=== PATIENT | female | born 1995 | race African-American/Black ===

== ENCOUNTER 2016-06-01 18:44 | Emergency (ER) | payer MEDICAID ==
[2016-06-01 19:46] LABS: BLOOD, URINE NEG (NEG); CALCIUM OXALATE CRYSTALS,URINE MANY /hpf; COMMENT (UR) CULT NOT INDICATED; CULTURE IF INDICATED CULT NOT INDICATED; GLUCOSE,URINE 300 mg/dL (NEG); KETONE, URINE 10 mg/dL (NEG); MUCUS URINE FEW /lpf (OCC); NITRITE,URINE NEG (NEG); SQUAMOUS EPITHELIAL CELL URINE 3 /hpf (0-5); URINE COLOR YELLOW (YELLW/STRAW)
[2016-06-01] MEDS ORDERED: METR250T15 PO (20:55)
--- NOTE | 2016-06-01 20:55 | PD ---
HPI Chief Complaint Vaginal discharge abdominal pain possibly leaking fluid Date Seen: Jun 01, 2016 Travel History International Travel<30 Days: No Contact w/Intl Traveler<30Days: No Known Affected Area: No History of Present Illness HPI Patient is a 20-year-old black female at 30 weeks gestation presents planning of abdominal pain and vaginal discharge and possibly leaking fluid. She denies bleeding or contractions. Baby is active heart rate tracing reactive. Para: 0 : 2 : 1 History Obstetric History Obstetric History 1 AB Social History Alcohol Use: No Tobacco Use: No Substance Abuse: No Allergies-Medications (Allergen,Severity, Reaction): Coded Allergies: No Known Allergies (Unverified , 02/10/16) Home Meds No Active Prescriptions or Reported Meds Physical Exam Narrative GENERAL: Well-nourished, well-developed patient. SKIN: Warm and dry. HEAD: Normocephalic and atraumatic. EYES: No scleral icterus. No injection or drainage. ENT: No nasal drainage noted. Mucous membranes pink. Airway patent. NECK: Supple, trachea midline. No JVD. CARDIOVASCULAR: Regular rate and rhythm without murmurs, gallops, or rubs. RESPIRATORY: Breath sounds equal bilaterally. No accessory muscle use. BREASTS: Bilateral exam showed no masses , no retractions, no nipple discharge. ABDOMEN/GI: Abdomen soft, non-tender, bowel sounds present, no rebound, no guarding Gravid to [-30] weeks size Fundal Height: [-29 cm] GENITOURINARY: External Genitalia: intact and normal in appearance right discharge in the vagina and wet prep done positive for bacterial vaginosis BUS glands: [-] Cervix: [-Closed] Dilatation: [-] Effacement: [-] Station: [-] Presentation: [-] Membranes: [intact ]amnisure neg Uterine Contractions: [none-] FHT's: Category: [1-] Baseline: [144-] Reactive: [-yes] Variability: [-mod] Decels: [none-] EXTREMITIES: No cyanosis or edema. BACK: Nontender without obvious deformity. No CVA tenderness. NEUROLOGICAL: Awake and alert. Motor and sensory grossly within normal limits. Five out of 5 muscle strength in all muscle groups. Normal speech. Data Data Orders Vital Signs (Adult) .ON ADMISSION (06/01/16 19:12) ^ Labor Status (06/01/16 19:12) Urinalysis - C+S If Indicated (06/01/16 19:12) ^ Hydration (06/01/16 19:12) Wet Prep Profile (06/01/16 19:23) Labs Laboratory Tests Test 06/01/16 06/01/16 19:00 19:25 Urine Color YELLOW Urine Turbidity HAZY Urine pH 6.0 Urine Specific [place] 1.032 Urine Protein 30 Urine Glucose (UA) 300 Urine Ketones 10 Urine Occult Blood NEG Urine Nitrite NEG Urine Bilirubin NEG Urine Urobilinogen LESS THAN 2.0 Urine Leukocyte Esterase NEG Urine RBC 1 Urine WBC 2 Urine Squamous Epithelial 3 Cells Urine Calcium Oxalate Crystals MANY Urine Mucus FEW Microscopic Urinalysis Comment CULT NOT INDICATED Clue Cells (Wet Prep) PRESENT Vaginal Trichomonas (Wet Prep) NONE SEEN Vaginal Yeast (Wet Prep) NONE SEEN MDM Interpretation(s) Since her black female at 30 weeks with vaginal discharge possibly leaking fluid ,amnisure is negative, her urinalysis was negative when it was high for a sugar earlier fingerstick blood sugar was 83, wet prep shows positive clue cells and bacterial vaginosis no yeast or trichomoniasis Plan Plan to begin the patient on Flagyl 250 3 times a day and have her follow up with her OB provider Diagnosis Diagnosis: Primary Impression: Bacterial vaginosis Additional Impression: Abdominal pain during intrauterine Disposition: 01 DISCHARGE HOME Condition: Stable Scripts Metronidazole 250 Mg Hff133 Mg PO TID #21 TAB Ref 0 Prov:Kit Boggs II, MD 06/01/16 Patient Instructions: General Instructions, Labor (ED), Abdominal Pain in (ED) Additional Instructions: RETURN FOR CONTRACTIONS, LOSS OF FLUID (WATER BREAKING), VAGINAL BLEEDING, OR DECREASED MOVEMENT. DRINK 8-10 LARGE GLASSES OF WATER EVERY DAY. OBTAIN A COPY OF YOUR RECORDS AND LABS. KEEP YOUR SCHEDULED APPOINTMENT WITH YOUR PROVIDER. Departure Forms: Tests/Procedures Kit Boggs II, MD Jun 01, 2016 20:55
== END 2016-06-01 21:00 | disposition home or self-care (01) ==
LOC: HOBED 18:44
DX: O23.593 Infection of other part of genital tract in pregnancy, third trimester (principal); O26.893 Other specified pregnancy related conditions, third trimester; R10.9 Unspecified abdominal pain; Z3A.30 30 weeks gestation of pregnancy
CPT/HCPCS: 81001; 82948; 84112; 87210; 99284

== ENCOUNTER 2016-10-16 12:00 | Emergency (ER) | payer MEDICAID, OTHER ==
[~2016-10-16 12:00] MED LIST: METR250T15 PO
[2016-10-16 12:02] VITALS: BP 150/98; PULSE 82; RESP 16; TEMP 98.2; O2SAT 98
--- NOTE | 2016-10-16 12:08 | PD ---
Physical Exam Date Seen by Provider: October 16, 2016 Time Seen by Provider: 12:05 Narrative 21/y/o female with ongoing vaginal bleeding for 2 days. Patient usually has period at the first of month. Currently bleeding very heavy with clots. States a Pad An Hour. No significant abd. cramping. V/S Stable Awaiting Bed Placement. Data Data Last Documented VS Vital Signs Date Time Temp Pulse Resp B/P Pulse Ox O2 Delivery O2 Flow Rate FiO2 10/16/16 12:02 98.2 82 16 150/98 98 MDM Medical Record Reviewed: Yes Supervised Visit with CLARISA: Yes Condition: Stable Iftikhar Varela October 16, 2016 12:08
[2016-10-16 12:43] LABS: AUTOMATED NEUTROPHIL # 1.5 TH/MM3 (1.8-7.7); BASOPHIL % 0.6 % (0.0-2.0); EOSINOPHIL # 0.2 TH/MM3 (0-0.4); EOSINOPHIL % 4.3 % (0.0-4.0); HEMATOCRIT 37.4 % (35.0-46.0); HEMO FLAGS DIFF FINAL; MEAN CELL VOLUME 86.2 FL (80.0-100.0); MEAN CORPUSCULAR HEMOGLOBIN 28.1 PG (27.0-34.0); MEAN CORPUSCULAR HGB CONC 32.6 % (32.0-36.0); NEUT % 38.1 % (16.0-70.0); PLATELET COUNT 291 TH/MM3 (150-450); RED BLOOD COUNT 4.34 MIL/MM3 (4.00-5.30); RED CELL DISTRIBUTION WIDTH 14.1 % (11.6-17.2)
[2016-10-16 12:51] LABS: BACTERIA, URINE FEW /hpf; BLOOD, URINE LARGE (NEG); COMMENT (UR) CULTURE INDICATED; CULTURE IF INDICATED CULTURE INDICATED; GLUCOSE,URINE NEG (NEG); KETONE, URINE TRACE mg/dL (NEG); MUCUS URINE MANY /lpf (OCC); NITRITE,URINE NEG (NEG); PH, URINE 5.5 (5.0-8.5); SQUAMOUS EPITHELIAL CELL URINE 2 /hpf (0-5)
[2016-10-16 12:52] LABS: URINE COLOR RED (YELLW/STRAW)
[2016-10-16 13:05] LABS: ANION GAP 8 MEQ/L (5-15); AST (GOT) 74 U/L (16-38); BICARBONATE 26.2 MEQ/L (21.0-32.0); BLOOD UREA NITROGEN 4 MG/DL (7-18); CHLORIDE 104 MEQ/L (98-107); GLOMERULAR FILTRATION RATE 103 ML/MIN (>89); POTASSIUM 3.6 MEQ/L (3.5-5.1); SODIUM (NA) 138 MEQ/L (136-145)
[2016-10-16 13:08] LABS: ALKALINE PHOSPHATASE 71 U/L (45-117); ALT (GPT) 96 U/L (9-42); TOTAL BILIRUBIN ADULT 0.9 MG/DL (0.2-1.0)
--- NOTE | 2016-10-16 13:26 | PD ---
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 The patient states that she started bleeding yesterday and has been passing clots. States that she has been changing a pad every hour. Patient states that her last menstrual period was 08/26/16 and that she is a little late for her menstrual cycle. She did not take a test at home. States that she has had some mild lower abdominal cramping typical for menstrual cramps. States that her periods typically light and that this is abnormal for her to have heavy bleeding. She denies any fever, chills, nausea, vomiting, diarrhea, lightheadedness, dizziness, chest pain, shortness of breath. She did have a vaginal delivery 3 months ago, has had 3 menstrual cycles since her delivery. No other complaints. [facility] Past Medical History Diminished Hearing: No ?: Unknown : 1 Para: 0 Miscarriage: 1 Dilation and Curettage (D&C): Yes Social History Alcohol Use: No Tobacco Use: No Substance Use: No Allergies-Medications (Allergen,Severity, Reaction): Coded Allergies: No Known Allergies (Unverified , 10/16/16) Reported Meds & Prescriptions Reported Meds & Active Scripts Active Metronidazole 250 Mg Tab 250 Mg PO TID Review of Systems Except as stated in HPI: all other systems reviewed are Neg Physical Exam Narrative GENERAL: Well-nourished and well-developed pleasant female patient in no acute distress who is nontoxic appearing. SKIN: Warm and dry. HEAD: Normocephalic and atraumatic. EYES: No injection, drainage, or hyphema noted. PERRLA. EOMI. ENT: No nasal drainage noted. Oropharynx is clear. NECK: Supple and the trachea is midline. CARDIOVASCULAR: Regular rate and rhythm. RESPIRATORY: Breath sounds are equal bilaterally with no accessory muscle use, wheezing, rhonchi, or crackles. GASTROINTESTINAL: Abdomen is soft, non-tender, and nondistended. GENITOURINARY: Normal external genitalia without lesions or erythema. Vaginal vault with moderate amount of blood. Cervical os was closed without drainage. No cervical motion tenderness. Uterus nontender and nonenlarged. Bilateral adnexa nontender without masses. Performed in the presence of Eliz RIOS. MUSCULOSKELETAL: No obvious deformities, swelling, cyanosis, or ecchymosis is present throughout the upper and lower extremities. Patient has full range of motion without any signs of neurovascular compromise. NEUROLOGICAL: Awake, alert, and oriented. Normal speech and gait. Cranial nerves are grossly intact. Data Data Last Documented VS Vital Signs Date Time Temp Pulse Resp B/P Pulse Ox O2 Delivery O2 Flow Rate FiO2 10/16/16 12:02 98.2 82 16 150/98 98 Orders Complete Blood Count With Diff (10/16/16 12:12) Basic Metabolic Panel (Bmp) (10/16/16 12:12) Comprehensive Metabolic Panel (10/16/16 12:12) Urinalysis - C+S If Indicated (10/16/16 12:12) Ua Includes Microscopic (10/16/16 12:12) Ed Urine Pregnancytest Poc (10/16/16 12:12) Urine Culture (10/16/16 12:25) Labs Laboratory Tests Test 10/16/16 12:25 White Blood Count 4.0 TH/MM3 Red Blood Count 4.34 MIL/MM3 Hemoglobin 12.2 GM/DL Hematocrit 37.4 % Mean Corpuscular Volume 86.2 FL Mean Corpuscular Hemoglobin 28.1 PG Mean Corpuscular Hemoglobin 32.6 % Concent Red Cell Distribution Width 14.1 % Platelet Count 291 TH/MM3 Mean Platelet Volume 7.7 FL Neutrophils (%) (Auto) 38.1 % Lymphocytes (%) (Auto) 49.0 % Monocytes (%) (Auto) 8.0 % Eosinophils (%) (Auto) 4.3 % Basophils (%) (Auto) 0.6 % Neutrophils # (Auto) 1.5 TH/MM3 Lymphocytes # (Auto) 2.0 TH/MM3 Monocytes # (Auto) 0.3 TH/MM3 Eosinophils # (Auto) 0.2 TH/MM3 Basophils # (Auto) 0.0 TH/MM3 CBC Comment DIFF FINAL Differential Comment Urine Color RED Urine Turbidity HAZY Urine pH 5.5 Urine Specific [place] 1.023 Urine Protein 30 mg/dL Urine Glucose (UA) NEG mg/dL Urine Ketones TRACE mg/dL Urine Occult Blood LARGE Urine Nitrite NEG Urine Bilirubin NEG Urine Urobilinogen LESS THAN 2.0 MG/DL Urine Leukocyte Esterase SMALL Urine RBC /hpf Urine WBC 34 /hpf Urine Squamous Epithelial 2 /hpf Cells Urine Bacteria FEW /hpf Urine Mucus MANY /lpf Microscopic Urinalysis Comment CULTURE INDICATED Sodium Level 138 MEQ/L Potassium Level 3.6 MEQ/L Chloride Level 104 MEQ/L Carbon Dioxide Level 26.2 MEQ/L Anion Gap 8 MEQ/L Blood Urea Nitrogen 4 MG/DL Creatinine 0.85 MG/DL Estimat Glomerular Filtration 103 ML/MIN Rate Random Glucose 90 MG/DL Calcium Level 9.4 MG/DL Total Bilirubin 0.9 MG/DL Aspartate Amino Transf 74 U/L (AST/SGOT) Alanine Aminotransferase 96 U/L (ALT/SGPT) Alkaline Phosphatase 71 U/L Total Protein 8.1 GM/DL Albumin 4.1 GM/DL [facility] Medical Decision Making Medical Screen Exam Complete: Yes Emergency Medical Condition: Yes Differential Diagnosis Dysmenorrhea versus heavy menstruation versus cervical cancer Narrative Course 21-year-old female presents to the emergency department for 2 day history of heavy vaginal bleeding. Patient is afebrile, vital signs are stable. Abdominal examination is benign. ED urine test is negative. CBC is unremarkable. CMP shows slightly elevated LFTs but is otherwise unremarkable. Urinalysis shows hematuria, slight proteinuria and a few white blood cells. This is asymptomatic bacteruria and therefore we'll follow cultures rather than treat with antibiotics at this time. Pelvic examination shows vaginal bleeding but is otherwise unremarkable. Patient is stable for discharge to home. Discussed signs and symptoms of anemia and when to return to the emergency department. Advised to follow-up as an outpatient with her grinder outside diameter or PCP. Patient verbalizes understanding and agreement with treatment plan. I discussed the case with my attending physician Dr. Wynne who is aware of the patients history, physical examination findings, and treatment plan. Diagnosis Primary Impression: Dysmenorrhea Referrals: Porcelain Enamel Repairer Patient Instructions: Dysmenorrhea (ED), General Instructions Additional Instructions: Follow-up with your Primary Care Physician or Porcelain Enamel Repairer. Return to the ED for any acute worsening of symptoms such as lightheadedness, syncope, chest pain, shortness of breath. Med/Other Pt SpecificInfo: No Change to Meds Disposition: 01 DISCHARGE HOME Condition: Stable Latesha Ortega October 16, 2016 13:26
[2016-10-16 14:15] VITALS: BP 147/84
== END 2016-10-16 14:16 | disposition home or self-care (01) ==
LOC: NEPD 12:00
DX: N94.6 Dysmenorrhea, unspecified (principal); R82.71 Bacteriuria
CPT/HCPCS: 80053; 81001; 84703; 85025; 87086; 99284

== ENCOUNTER 2016-11-02 17:24 | Emergency (ER) | payer MEDICAID, OTHER ==
[~2016-11-02] VITALS: Ht 154.9 cm; Wt 65.0 kg
[2016-11-02 17:25] VITALS: BP 132/78; PULSE 88; RESP 20; TEMP 98.9; O2SAT 97
--- NOTE | 2016-11-02 17:35 | PD ---
Physical Exam Date Seen by Provider: Nov 02, 2016 Time Seen by Provider: 17:34 Data Data Last Documented VS Vital Signs Date Time Temp Pulse Resp B/P Pulse Ox O2 Delivery O2 Flow Rate FiO2 11/02/16 17:25 98.9 88 20 132/78 97 Room Air MDM Supervised Visit with CLARISA: No Narrative Course 21 YO F with complaint of dyspareunia, odor during intercourse x 2 days. LMP "end of last month" Vitals reviewed. Awaiting bed placement. Daya Flowers Nov 02, 2016 17:35
== END 2016-11-02 21:03 | disposition left against medical advice (07) ==
LOC: NED 17:24
DX: N94.10 Unspecified dyspareunia (principal); Z53.20 Procedure and treatment not carried out because of patient's decision for unspecified reasons
CPT/HCPCS: 99281

== ENCOUNTER 2016-11-07 19:36 | Emergency (ER) | payer MEDICAID ==
[~2016-11-07] VITALS: Ht 154.9 cm; Wt 66.5 kg
[2016-11-07 19:37] VITALS: BP 131/78; PULSE 91; RESP 16; TEMP 98.6; O2SAT 99
[2016-11-07 21:46] LABS: BACTERIA, URINE RARE /hpf; BLOOD, URINE NEG (NEG); GLUCOSE,URINE NEG (NEG); KETONE, URINE TRACE mg/dL (NEG); MUCUS URINE FEW /lpf (OCC); NITRITE,URINE NEG (NEG); SQUAMOUS EPITHELIAL CELL URINE 3 /hpf (0-5); URINE COLOR YELLOW (YELLW/STRAW)
[2016-11-07 21:47] LABS: COMMENT (UR) CULT NOT INDICATED; CULTURE IF INDICATED CULT NOT INDICATED
== END 2016-11-07 21:44 | disposition left against medical advice (07) ==
LOC: NED 19:36
DX: Z53.21 Procedure and treatment not carried out due to patient leaving prior to being seen by health care provider (principal)
CPT/HCPCS: 81001; 84703; 99281

== ENCOUNTER 2016-11-19 18:02 | Emergency (ER) | payer MEDICAID ==
[2016-11-19 18:03] VITALS: BP 138/77; PULSE 66; RESP 14; TEMP 98.1; O2SAT 99
[2016-11-19] MEDS ORDERED: METR-1 PO (20:35)
--- NOTE | 2016-11-19 20:36 | PD ---
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 She is a history of BV. She states she sexually active one male partner only. He has no symptoms. She denies any urinary symptoms. No other complaints. History Past Medical History Medical History: Denies Significant Hx Tetanus Vaccination: Unknown Influenza Vaccination: No LMP: 10/14/16 : 2 Para: 1 Dilation and Curettage (D&C): Yes Past Surgical History Surgical History: No Previous Surgery Social History Alcohol Use: No Tobacco Use: No Allergies-Medications (Allergen,Severity, Reaction): Coded Allergies: No Known Allergies (Unverified , 11/19/16) Reported Meds & Prescriptions Reported Meds & Active Scripts Active No Active Prescriptions or Reported Medications Review of Systems Except as stated in HPI: all other systems reviewed are Neg Physical Exam Narrative GENERAL: Well-appearing 21-year-old woman, no acute distress. SKIN: Focused skin assessment warm/dry. NECK: Trachea midline. No JVD. CARDIOVASCULAR: Regular rate and rhythm. No murmur appreciated. RESPIRATORY: No accessory muscle use. Clear to auscultation. Breath sounds equal bilaterally. GASTROINTESTINAL: Abdomen soft, non-tender, nondistended. Hepatic and splenic margins not palpable. MUSCULOSKELETAL: No obvious deformities. REFRIGERATOR CRATER: Normal emotional abdominal genitalia. Scant vaginal discharge. Data Data Last Documented VS Vital Signs Date Time Temp Pulse Resp B/P Pulse Ox O2 Delivery O2 Flow Rate FiO2 11/19/16 18:03 98.1 66 14 138/77 99 Orders Gc And Chlamydia Pcr (11/19/16 19:10) Wet Prep Profile (11/19/16 19:10) Labs Laboratory Tests Test 11/19/16 19:45 Clue Cells (Wet Prep) PRESENT Vaginal Trichomonas (Wet Prep) NONE SEEN Vaginal Yeast (Wet Prep) NONE SEEN MDM Medical Decision Making Medical Screen Exam Complete: Yes Emergency Medical Condition: Yes Interpretation(s) Wet prep positive for clue cells Differential Diagnosis Acute vaginosis, cervicitis, PID, trich, other Narrative Course Medical decision-making new para 21-year-old with malodorous vaginal discharge, suggestive of DVT. We'll treat for BV. Diagnosis Primary Impression: Bacterial vaginosis Additional Instructions: Take medications as prescribed. Follow-up with a braze operator. Med/Other Pt SpecificInfo: Prescription(s) given Scripts Metronidazole (Flagyl)500 Mg Dtr429 Mg PO BID 7 Days Ref 0 Prov:Renato Wynne MD 11/19/16 Disposition: 01 DISCHARGE HOME Condition: Stable Renato Wynne MD Nov 19, 2016 20:36
[2016-11-19 21:09] VITALS: BP 124/67
[2016-11-20 00:24] LABS: CHLAMYDIA PCR NOT DETECTED (NOT DETECT); NEISSERIA PCR NOT DETECTED (NOT DETECT)
== END 2016-11-19 21:24 | disposition home or self-care (01) ==
LOC: NEPD 18:02
DX: N76.0 Acute vaginitis (principal)
CPT/HCPCS: 87210; 87491; 87591; 99283

== ENCOUNTER 2016-12-25 18:22 | Emergency (ER) | payer MEDICAID ==
[~2016-12-25] VITALS: Ht 154.9 cm; Wt 65.0 kg
[~2016-12-25 18:22] MED LIST changes: +METR-1 PO; -METR250T15 PO
[2016-12-25 18:24] VITALS: BP 137/85; PULSE 67; RESP 15; TEMP 98.2; O2SAT 99
[2016-12-25] MEDS ORDERED: SODIUM CHLOR 0.9% 1000 ML INJ 1,000 ML IV SCH (19:17)
--- NOTE | 2016-12-25 19:22 | PD ---
HPI Chief Complaint: GI Complaint Time Seen by Provider: 19:12 Travel History International Travel<30 days: No Contact w/Intl Traveler<30days: No Traveled to known affect area: No History of Present Illness HPI 21-year-old female complains of abdominal pain with nausea vomiting. Patient states that the symptoms started 2 days ago. Patient states that abdominal pain cramping pain intermittent pain diffuse over the abdomen. Patient denies any pain radiation. Patient denies any fever chills. Patient states that she has intermittent nausea vomiting. Patient denies any diarrhea. Patient denies any dysuria or frequency. Patient denies any vaginal discharge or bleeding. Patient is late for her menstruation period this month. [facility] Past Medical History Medical History: Denies Significant Hx Diminished Hearing: No ?: Unknown LMP: 11/03/16 : 2 Para: 1 Miscarriage: 1 Dilation and Curettage (D&C): Yes Social History Alcohol Use: No Tobacco Use: No (never) Substance Use: No Allergies-Medications (Allergen,Severity, Reaction): Coded Allergies: No Known Allergies (Unverified , 11/19/16) Reported Meds & Prescriptions Reported Meds & Active Scripts Active Review of Systems General / Constitutional: No: Fever Eyes: No: Visual changes HENT: No: Headaches Cardiovascular: No: Chest Pain or Discomfort Respiratory: No: Shortness of Breath Gastrointestinal: Positive: Nausea, Vomiting, Abdominal Pain Genitourinary: No: Dysuria Musculoskeletal: No: Pain Skin: No Rash Neurologic: No: Weakness Psychiatric: No: Depression Endocrine: No: Polydipsia Hematologic/Lymphatic: No: Easy Bruising Physical Exam Narrative GENERAL: Well-nourished, well-developed patient. SKIN: Focused skin assessment warm/dry. HEAD: Normocephalic. EYES: No scleral icterus. No injection or drainage. NECK: Supple, trachea midline. No JVD or lymphadenopathy. CARDIOVASCULAR: Regular rate and rhythm without murmurs, gallops, or rubs. RESPIRATORY: Breath sounds equal bilaterally. No accessory muscle use. GASTROINTESTINAL: Abdomen soft, nondistended. Patient has mild to moderate tenderness and palpation periumbilical area of the abdomen. No rebound tenderness. No mass. MUSCULOSKELETAL: No cyanosis, or edema. BACK: Nontender without obvious deformity. No CVA tenderness. Data Data Last Documented VS Vital Signs Date Time Temp Pulse Resp B/P Pulse Ox O2 Delivery O2 Flow Rate FiO2 12/25/16 19:39 16 100 Room Air 12/25/16 18:24 98.2 67 137/85 Orders Complete Blood Count With Diff (12/25/16 19:17) Comprehensive Metabolic Panel (12/25/16 19:17) Lipase (12/25/16 19:17) Prothrombin Time / Inr (Pt) (12/25/16 19:17) Act Partial Throm Time (Ptt) (12/25/16 19:17) Urinalysis - C+S If Indicated (12/25/16 19:17) Ct Abd/Pel W Iv Contrast(Rout) (12/25/16 19:17) Iv Access Insert/Monitor (12/25/16 19:17) Ecg Monitoring (12/25/16 19:17) Oximetry (12/25/16 19:17) Ondansetron Inj (Zofran Inj) (12/25/16 19:30) Pantoprazole Inj (Protonix Inj) (12/25/16 19:30) Sodium Chlor 0.9% 1000 Ml Inj (Ns 1000 M (12/25/16 19:17) Ed Urine Pregnancytest Poc (12/25/16 19:17) Iohexol 350 Inj (Omnipaque 350 Inj) (12/25/16 21:16) Labs Laboratory Tests Test 12/25/16 12/25/16 19:30 19:35 White Blood Count 5.1 TH/MM3 Red Blood Count 4.25 MIL/MM3 Hemoglobin 11.8 GM/DL Hematocrit 36.2 % Mean Corpuscular Volume 85.2 FL Mean Corpuscular Hemoglobin 27.8 PG Mean Corpuscular Hemoglobin 32.6 % Concent Red Cell Distribution Width 14.1 % Platelet Count 336 TH/MM3 Mean Platelet Volume 8.0 FL Neutrophils (%) (Auto) 46.4 % Lymphocytes (%) (Auto) 41.6 % Monocytes (%) (Auto) 7.0 % Eosinophils (%) (Auto) 4.2 % Basophils (%) (Auto) 0.8 % Neutrophils # (Auto) 2.4 TH/MM3 Lymphocytes # (Auto) 2.1 TH/MM3 Monocytes # (Auto) 0.4 TH/MM3 Eosinophils # (Auto) 0.2 TH/MM3 Basophils # (Auto) 0.0 TH/MM3 CBC Comment DIFF FINAL Differential Comment Prothrombin Time 11.2 SEC Prothromb Time International 1.0 RATIO Ratio Activated Partial 27.8 SEC Thromboplast Time Sodium Level 139 MEQ/L Potassium Level 3.7 MEQ/L Chloride Level 103 MEQ/L Carbon Dioxide Level 26.0 MEQ/L Anion Gap 10 MEQ/L Blood Urea Nitrogen 5 MG/DL Creatinine 0.82 MG/DL Estimat Glomerular Filtration 108 ML/MIN Rate Random Glucose 67 MG/DL Calcium Level 9.0 MG/DL Total Bilirubin 0.6 MG/DL Aspartate Amino Transf 32 U/L (AST/SGOT) Alanine Aminotransferase 33 U/L (ALT/SGPT) Alkaline Phosphatase 59 U/L Total Protein 7.9 GM/DL Albumin 3.8 GM/DL Lipase 282 U/L Urine Color YELLOW Urine Turbidity CLEAR Urine pH 6.0 Urine Specific [place] 1.018 Urine Protein TRACE mg/dL Urine Glucose (UA) NEG mg/dL Urine Ketones NEG mg/dL Urine Occult Blood NEG Urine Nitrite NEG Urine Bilirubin NEG Urine Urobilinogen LESS THAN 2.0 MG/DL Urine Leukocyte Esterase LARGE Urine RBC LESS THAN 1 /hpf Urine WBC 5 /hpf Urine Squamous Epithelial 3 /hpf Cells Urine Bacteria OCC /hpf Urine Mucus FEW /lpf Microscopic Urinalysis Comment CULT NOT INDICATED MDM Medical Decision Making Medical Screen Exam Complete: Yes Emergency Medical Condition: Yes Interpretation(s) 22:15 PM. CBC within normal limit. CMP within normal limit. UA is negative. Urine test negative. 22-39 PM. Last Impressions Abdomen/Pelvis CT 12/25/161916 Signed Impressions: Service Date/Time: Sunday, December 25, 2016 21:10 - CONCLUSION: 1. Significant amount of free fluid in the cul-de-sac, bilateral hypodensities in the adnexa and prominence of the endometrium. 2. Contracted gallbladder without calcified gallstones. Artemio Mahoney MD Differential Diagnosis Differential diagnosis including , gastritis, PUD, pancreatitis, cholecystitis, colitis, UTI, pyelonephritis, nephrolithiasis, cervicitis, PID, ectopic Narrative Course 21-year-old female with abdominal pain and nausea vomiting. Normal saline solution 1 25 cc an hour. Protonix 40 mg IV. Zofran 4 mg IV. Diagnosis Primary Impression: Ruptured ovarian cyst Additional Impression: Dysmenorrhea Patient Instructions: General Instructions Additional Instructions: Ibuprofen as needed for pain. Follow-up with personal physician and alarm mechanism adjuster. Return if worse. Med/Other Pt SpecificInfo: Prescription(s) given Scripts Ibuprofen 600 Mg Siz798 Mg PO TID #30 TAB Prov:Danny Lee MD 12/25/16 Disposition: 01 DISCHARGE HOME Condition: Stable Danny Lee MD Dec 25, 2016 19:22
[2016-12-25] MEDS ORDERED: ONDANSETRON HCL 4 MG/2 ML VIAL IVP ONE (19:30)
[2016-12-25] MEDS ORDERED: PANTOPRAZOLE SODIUM 40 MG VIAL IVP ONE (19:30)
[2016-12-25 19:39] VITALS: RESP 16; O2SAT 100
[2016-12-25 20:12] LABS: BACTERIA, URINE OCC /hpf; BLOOD, URINE NEG (NEG); COMMENT (UR) CULT NOT INDICATED; CULTURE IF INDICATED CULT NOT INDICATED; GLUCOSE,URINE NEG (NEG); KETONE, URINE NEG (NEG); MUCUS URINE FEW /lpf (OCC); NITRITE,URINE NEG (NEG); SQUAMOUS EPITHELIAL CELL URINE 3 /hpf (0-5); URINE COLOR YELLOW (YELLW/STRAW)
[2016-12-25 20:14] LABS: AUTOMATED NEUTROPHIL # 2.4 TH/MM3 (1.8-7.7); BASOPHIL % 0.8 % (0.0-2.0); EOSINOPHIL # 0.2 TH/MM3 (0-0.4); EOSINOPHIL % 4.2 % (0.0-4.0); HEMATOCRIT 36.2 % (35.0-46.0); HEMO FLAGS DIFF FINAL; LYMPH % 41.6 % (9.0-44.0); LYMPHOCYTE # 2.1 TH/MM3 (1.0-4.8); MEAN CELL VOLUME 85.2 FL (80.0-100.0); MEAN CORPUSCULAR HEMOGLOBIN 27.8 PG (27.0-34.0); MEAN CORPUSCULAR HGB CONC 32.6 % (32.0-36.0); NEUT % 46.4 % (16.0-70.0); PLATELET COUNT 336 TH/MM3 (150-450); RED BLOOD COUNT 4.25 MIL/MM3 (4.00-5.30); RED CELL DISTRIBUTION WIDTH 14.1 % (11.6-17.2); WHITE BLOOD COUNT 5.1 TH/MM3 (4.0-11.0)
[2016-12-25 20:19] LABS: ANION GAP 10 MEQ/L (5-15); APTT (PATIENT) 27.8 SEC (24.3-30.1); AST (GOT) 32 U/L (16-38); BLOOD UREA NITROGEN 5 MG/DL (7-18); CHLORIDE 103 MEQ/L (98-107); GLOMERULAR FILTRATION RATE 108 ML/MIN (>89); POTASSIUM 3.7 MEQ/L (3.5-5.1); PROTHROMBIN TIME - PATIENT 11.2 SEC (9.8-11.6); SODIUM (NA) 139 MEQ/L (136-145)
[2016-12-25 20:24] LABS: ALKALINE PHOSPHATASE 59 U/L (45-117); ALT (GPT) 33 U/L (9-42); TOTAL BILIRUBIN ADULT 0.6 MG/DL (0.2-1.0)
[2016-12-25] MEDS ORDERED: IOHEXOL 350 MG/ML 10 ML VIAL (for RAD DIAG) IV ONE (21:16)
--- NOTE | 2016-12-25 22:15 | RADRPT ---
EXAM DATE/TIME: 12/25/2016 21:10 [facility] COMPARISON: No previous studies available for comparison. INDICATIONS : Abdominal pain, umbilical area and vomiting x2 days. IV CONTRAST: 76 cc Omnipaque 350 (iohexol) IV ORAL CONTRAST: No oral contrast ingested. RADIATION DOSE: 6.10 CTDIvol (mGy) MEDICAL HISTORY : None SURGICAL HISTORY : None. ENCOUNTER: Initial ACUITY: 1 day PAIN SCALE: 7/10 LOCATION: Umbilical abdomen TECHNIQUE: Volumetric scanning of the abdomen and pelvis was performed. Using automated exposure control and ad justment of the mA and/or kV according to patient size, radiation dose was kept as low as reasonably achievable to obtain optimal diagnostic quality images. DICOM format image data is available electro nically for review and comparison. FINDINGS: LOWER LUNGS: The visualized lower lungs are clear. LIVER: Homogeneous density without lesion. There is no dilation of the biliary tree. Significantly contrac megan gallbladder. No calcified gallstones. SPLEEN: Normal size without lesion. PANCREAS: Within normal limits. KIDNEYS: Normal in size and shape. There is no mass, stone or hydronephrosis. ADRENAL GLANDS: Within normal limits. VASCULAR: There is no aortic aneurysm. BOWEL/MESENTERY: No dilated loops of small or large bowel. ABDOMINAL WALL: Within normal limits. RETROPERITONEUM: There is no lymphadenopathy. BLADDER: No wall thickening or mass. REPRODUCTIVE: Anteverted uterus. Prominent endometrium. Low density areas in the adnexa bilaterally may represent ovarian cysts. There is a significant amount of free fluid in the cul-de-sac measuring up to 2.9 cm . INGUINAL: There is no lymphadenopathy or hernia. MUSCULOSKELETAL: Within normal limits for patient age. CONCLUSION: 1. Significant amount of free fluid in the cul-de-sac, bilateral hypodensities in the adnexa and prom inence of the endometrium. 2. Contracted gallbladder without calcified gallstones. Artemio Mahoney MD on December 25, 2016 at 22:10 Board Certified Radiologist. This report was verified electronically.
[2016-12-25] MEDS ORDERED: IBUP-232 PO (22:49)
== END 2016-12-25 23:35 | disposition home or self-care (01) ==
LOC: NEPE 18:22
DX: N83.299 Other ovarian cyst, unspecified side (principal); N94.6 Dysmenorrhea, unspecified; R10.9 Unspecified abdominal pain
CPT/HCPCS: 74177; 80053; 81001; 83690; 84703; 85025; 85610; 85730; 96361; 96374; 96375; 99285; C9113; J2405; J7030; Q9967

== ENCOUNTER 2017-01-24 19:47 | Emergency (ER) | payer MEDICAID ==
[~2017-01-24] VITALS: Ht 154.9 cm; Wt 66.5 kg
[~2017-01-24 19:47] MED LIST changes: +IBUP-232 PO; -METR-1 PO
[2017-01-24 19:50] VITALS: BP 128/73; PULSE 99; RESP 15; TEMP 99.5; O2SAT 97
--- NOTE | 2017-01-24 20:42 | PD ---
Physical Exam Date Seen by Provider: Jan 24, 2017 Time Seen by Provider: 20:41 Narrative 21 yo female here for evaluation of vaginal discharge. Has had it for sometime. has cramping pain. No other medical issues. Vitals stable in triage. Awaiting bed placement Data Data Last Documented VS Vital Signs Date Time Temp Pulse Resp B/P (MAP) Pulse Ox O2 Delivery O2 Flow Rate FiO2 01/24/17 19:50 99.5 99 15 128/73 (91) 97 Room Air [facility] Medical Record Reviewed: Yes Supervised Visit with CLARISA: Johnny Turpin Jan 24, 2017 20:42
== END 2017-01-24 23:30 | disposition left against medical advice (07) ==
LOC: NETRI 19:47
DX: N89.8 Other specified noninflammatory disorders of vagina (principal); R10.9 Unspecified abdominal pain; Z53.21 Procedure and treatment not carried out due to patient leaving prior to being seen by health care provider
CPT/HCPCS: 99281

== ENCOUNTER 2017-01-28 12:11 | Emergency (ER) | payer MEDICAID ==
[2017-01-28 12:16] VITALS: BP 133/76; PULSE 99; RESP 16; TEMP 99; O2SAT 99
[2017-01-28] MEDS ORDERED: metroNIDAZOLE 500 MG TAB PO ONE (12:45)
[2017-01-28] MEDS ORDERED: cefTRIAXone 250 MG VIAL IM ONE (12:45)
[2017-01-28] MEDS ORDERED: AZITHROMYCIN PWD FOR SUSP 1 GM PACKET PO ONE (12:45)
[2017-01-28] MEDS ORDERED: ONDANSETRON ODT 4 MG TAB PO ONE (12:45)
[2017-01-28] MEDS ORDERED: LIDOCAINE HCL 1% 50 ML VIAL IM ONE (12:45)
--- NOTE | 2017-01-28 13:55 | PD ---
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 She states that she started getting abnormal discharge and pelvic cramping about 3 days ago. States she's had in the past is been commenting going for the past year or so. She sexually active one male partner. They've been together for couple years. She's been treated for STDs one time in the past. Last initial period was the beginning of December. She is 2 para 1 with a 6-month-old and one previous miscarriage. History Past Medical History Medical History: Denies Significant Hx LMP: 12/26/16 : 2 Para: 1 Dilation and Curettage (D&C): Yes Social History Alcohol Use: No Tobacco Use: No (never) Allergies-Medications (Allergen,Severity, Reaction): Coded Allergies: No Known Allergies (Unverified , 01/28/17) Reported Meds & Prescriptions Reported Meds & Active Scripts Active No Active Prescriptions or Reported Medications Review of Systems Except as stated in HPI: all other systems reviewed are Neg Physical Exam Narrative GENERAL: Well-appearing 21-year-old, no acute distress. SKIN: Focused skin assessment warm/dry. HEAD: Atraumatic. Normocephalic. CARDIOVASCULAR: Regular rate and rhythm. No murmur appreciated. RESPIRATORY: No accessory muscle use. Clear to auscultation. Breath sounds equal bilaterally. GASTROINTESTINAL: Abdomen soft, non-tender, nondistended. Hepatic and splenic margins not palpable. MUSCULOSKELETAL: No obvious deformities. No edema. NEUROLOGICAL: Awake and alert. No obvious cranial nerve deficits. Motor grossly within normal limits. Normal speech. PSYCHIATRIC: Appropriate mood and affect; insight and judgment normal. PELVIC: Normal external vaginal genitalia. Purulent vaginal discharge. Minimal pelvic tenderness. Data Data Last Documented VS Vital Signs Date Time Temp Pulse Resp B/P (MAP) Pulse Ox O2 Delivery O2 Flow Rate FiO2 01/28/17 12:24 16 01/28/17 12:16 99.0 99 133/76 (95) 99 Orders Orders Azithromycin Powd Pack (Zithromax Powd P (01/28/17 12:45) Ceftriaxone Inj (Rocephin Inj) (01/28/17 12:45) Lidocaine 1% Inj (50 Ml) (Xylocaine 1% I (01/28/17 12:45) Metronidazole (Flagyl) (01/28/17 12:45) Ondansetron Odt (Zofran Odt) (01/28/17 12:45) Gc And Chlamydia Pcr (01/28/17 13:07) Wet Prep Profile (01/28/17 13:07) Urinalysis - C+S If Indicated (01/28/17 13:07) Ed Urine Pregnancytest Poc (01/28/17 13:07) Labs Laboratory Tests Test 01/28/17 13:15 [facility] Medical Decision Making Medical Screen Exam Complete: Yes Emergency Medical Condition: Yes Differential Diagnosis PID, STD, UTI, other Narrative Course Medical decision making 21 year-old woman with pelvic cramping vaginal discharge, on exam copious vaginal discharge with purulent cervicitis. Recommend empiric treatment for cervicitis. Diagnosis Primary Impression: Purulent cervicitis Additional Instructions: Followup with your personnel records clerk for routine REMOTE PILOT OPERATOR care and followup testing for other sexually transmitted infection such as HIV, hepatitis, syphilis. Any sexual partners you have should be tested and treated as well. You should not have sex until you have no symptoms, and your partners tested and treated as well. Med/Other Pt SpecificInfo: No Change to Meds Scripts No Active Prescriptions or Reported Meds Disposition: 01 DISCHARGE HOME Condition: Stable Renato Wynne MD Jan 28, 2017 13:55
[2017-01-28 14:01] LABS: BACTERIA, URINE FEW /hpf; BLOOD, URINE NEG (NEG); COMMENT (UR) CULT NOT INDICATED; CULTURE IF INDICATED CULT NOT INDICATED; GLUCOSE,URINE NEG (NEG); KETONE, URINE NEG (NEG); MUCUS URINE MANY /lpf (OCC); NITRITE,URINE NEG (NEG); PH, URINE 5.5 (5.0-8.5); SQUAMOUS EPITHELIAL CELL URINE 9 /hpf (0-5); URINE COLOR YELLOW (YELLW/STRAW)
[2017-01-28 16:31] LABS: CHLAMYDIA PCR NOT DETECTED (NOT DETECT); NEISSERIA PCR NOT DETECTED (NOT DETECT)
== END 2017-01-28 14:26 | disposition home or self-care (01) ==
LOC: NEPD 12:11
DX: N72 Inflammatory disease of cervix uteri (principal)
CPT/HCPCS: 81001; 84703; 87210; 87491; 87591; 96372; 99284; J0696

== ENCOUNTER 2017-02-24 03:13 | Emergency (ER) | payer MEDICAID ==
[2017-02-24 03:14] VITALS: BP 127/78; PULSE 106; RESP 16; TEMP 98.3; O2SAT 96
[2017-02-24] MEDS ORDERED: METR-1 PO (05:57)
--- NOTE | 2017-02-24 05:57 | PD ---
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 She feels like it's more yellow than it was before. She completed treatment for cervicitis in the emergency department several weeks ago. She says she has one partner. She denies any abdominal pain, fevers or chills. PFSH Past Medical History Diminished Hearing: No Immunizations Current: No ?: Not LMP: 01/11 : 2 Para: 1 Miscarriage: 1 Dilation and Curettage (D&C): Yes Social History Alcohol Use: No Tobacco Use: No (never) Substance Use: No Allergies-Medications (Allergen,Severity, Reaction): Coded Allergies: No Known Allergies (Unverified , 01/28/17) Reported Meds & Prescriptions Reported Meds & Active Scripts Active Flagyl (Metronidazole) 500 Mg Tab 500 Mg PO BID 7 Days Review of Systems Except as stated in HPI: all other systems reviewed are Neg Physical Exam Narrative GENERAL:Well appearing, no acute distress SKIN: Focused skin assessment warm and dry. HEAD: Atraumatic. Normocephalic. EYES: Pupils equal and round. No injection or drainage. ENT: Moist mucous membranes NECK: Trachea midline. CARDIOVASCULAR: Regular rate and rhythm. No murmur appreciated. RESPIRATORY: Clear to auscultation. Breath sounds equal bilaterally. GASTROINTESTINAL: Abdomen soft, non-tender, nondistended. CALL CENTER ANALYST: White vaginal discharge with a fishy odor, no cervical motion or adnexal tenderness. MUSCULOSKELETAL: No obvious deformities. NEUROLOGICAL: Awake and alert. No obvious cranial nerve deficits. Moving all extremities. PSYCHIATRIC: Appropriate mood and affect; insight and judgment normal. Data Data Last Documented VS Vital Signs Date Time Temp Pulse Resp B/P (MAP) Pulse Ox O2 Delivery O2 Flow Rate FiO2 02/24/17 05:20 75 18 02/24/17 03:14 98.3 127/78 (94) 96 Room Air Orders Orders Gc And Chlamydia Pcr (02/24/17 04:24) Wet Prep Profile (02/24/17 04:24) Labs Laboratory Tests Test 02/24/17 04:46 Clue Cells (Wet Prep) NONE SEEN Vaginal Trichomonas (Wet Prep) NONE SEEN Vaginal Yeast (Wet Prep) NONE SEEN MDM Medical Decision Making Medical Screen Exam Complete: Yes Emergency Medical Condition: Yes Interpretation(s) Afebrile, mild tachycardia, normotensive Wet prep is normal Differential Diagnosis Bacterial vaginosis, gonorrhea, Chlamydia, Trichomonas, PID Narrative Course This is a 21-year-old female who presents to the emergency department with vaginal discharge. On exam she has a white discharge with a fishy odor. Clinical appearance is consistent with bacterial vaginosis. She's had bacterial vaginosis multiple times in the past. Wet prep was negative today but I'm concerned about the sensitivity of the wet prep and I think given she completed treatment for cervicitis last time in the ER think it's reasonable to put her on a course of Flagyl to see if she improves. She has no signs of PID. Diagnosis Primary Impression: Vaginal discharge Patient Instructions: General Instructions Additional Instructions: If you develop fever, chills, severe abdominal pain, persistent vomiting or inability to eat return to the emergency department. Your pelvic exam today did not include a Pap smear. It is important to followup with a book jacket cover machine operator on a yearly basis to be tested for cervical cancer as we do not do that from the emergency department. If there is a concern that you have sexually transmitted disease, your partner should be tested. You should followup with your book jacket cover machine operator or with the health department to get tested for other sexually transmitted diseases like HIV and syphilis, as we do not test for these in the emergency department Med/Other Pt SpecificInfo: Prescription(s) given Scripts Metronidazole (Flagyl) 500 Mg Tab 500 MG PO BID for Infection for 7 Days, #14 TAB 0 Refills Prov: Carole Herring MD 02/24/17 Disposition: 01 DISCHARGE HOME Condition: Stable Carole Herring MD Feb 24, 2017 05:57
[2017-02-24 07:14] LABS: CHLAMYDIA PCR NOT DETECTED (NOT DETECT); NEISSERIA PCR NOT DETECTED (NOT DETECT)
== END 2017-02-24 06:01 | disposition home or self-care (01) ==
LOC: NEPC 03:13
DX: N89.8 Other specified noninflammatory disorders of vagina (principal)
CPT/HCPCS: 87210; 87491; 87591; 99284

== ENCOUNTER 2017-05-26 09:45 | Emergency (ER) | payer MEDICAID ==
[~2017-05-26] VITALS: Ht 154.9 cm; Wt 66.0 kg
[~2017-05-26 09:45] MED LIST changes: -IBUP-232 PO; +METR-1 PO
[2017-05-26 09:46] VITALS: BP 109/75; PULSE 77; RESP 18; TEMP 98.5; O2SAT 100
[2017-05-26] MEDS ORDERED: cefTRIAXone 250 MG VIAL IM ONE (10:30)
[2017-05-26] MEDS ORDERED: FLUCONAZOLE 100 MG TAB PO ONE (10:30)
[2017-05-26] MEDS ORDERED: AZITHROMYCIN PWD FOR SUSP 1 GM PACKET PO ONE (10:30)
[2017-05-26] MEDS ORDERED: LIDOCAINE HCL 1% 50 ML VIAL IM ONE (10:30)
[2017-05-26] MEDS ORDERED: METR-1 PO (10:34)
--- NOTE | 2017-05-26 10:35 | PD ---
HPI Chief Complaint: Abdominal Pain Time Seen by Provider: 10:01 Travel History International Travel<30 days: No Contact w/Intl Traveler<30days: No Traveled to known affect area: No History of Present Illness HPI 21-year-old female 2 para 1 last menstruation approximately 8 days prior arrives complaining of yellow burning vaginal discharge for the last 2 days. No fever. No abnormal vaginal bleeding. She reports prior episodes vaginal discharge however it was not yellow. She reports sexual activity at times without barrier contraception. Timing constant. Severity mild-to- moderate. PFSH Past Medical History Medical History: Denies Significant Hx Diminished Hearing: No Immunizations Current: No ?: Not LMP: 05/17/17 : 2 Para: 1 Miscarriage: 1 Dilation and Curettage (D&C): Yes Social History Alcohol Use: No Tobacco Use: No (never) Substance Use: No Allergies-Medications (Allergen,Severity, Reaction): Coded Allergies: No Known Allergies (Unverified Adverse Reaction, Unknown, 05/26/17) Reported Meds & Prescriptions Reported Meds & Active Scripts Active Flagyl (Metronidazole) 500 Mg Tab 500 Mg PO BID 7 Days Review of Systems Except as stated in HPI: all other systems reviewed are Neg General / Constitutional: No: Fever Physical Exam Narrative GENERAL: Well-nourished well-developed 21-year-old female no acute distress pleasant SKIN: Warm and dry. HEAD: Atraumatic. Normocephalic. EYES: Pupils equal and round. No scleral icterus. No injection or drainage. ENT: No nasal bleeding or discharge. Mucous membranes pink and moist. NECK: Trachea midline. No JVD. CARDIOVASCULAR: Regular rate and rhythm. RESPIRATORY: No accessory muscle use. Clear to auscultation. Breath sounds equal bilaterally. GASTROINTESTINAL: Soft. Minimal TTP suprapubic abdomen. No RLQ TTP. MUSCULOSKELETAL: Extremities without clubbing, cyanosis, or edema. No obvious deformities. NEUROLOGICAL: Awake and alert. No obvious cranial nerve deficits. Motor grossly within normal limits. Five out of 5 muscle strength in the arms and legs. Normal speech. PSYCHIATRIC: Appropriate mood and affect; insight and judgment normal. Data Data Last Documented VS Vital Signs Date Time Temp Pulse Resp B/P (MAP) Pulse Ox O2 Delivery O2 Flow Rate FiO2 05/26/17 11:54 05/26/17 09:46 98.5 77 18 100 Room Air Vital signs reviewed Orders Orders Urinalysis - C+S If Indicated (05/26/17 10:30) Azithromycin Powd Pack (Zithromax Powd P (05/26/17 10:30) Ceftriaxone Inj (Rocephin Inj) (05/26/17 10:30) Lidocaine 1% Inj (50 Ml) (Xylocaine 1% I (05/26/17 10:30) Ed Urine Pregnancytest Poc (05/26/17 10:30) Fluconazole (Diflucan) (05/26/17 10:30) Lidocaine Pf 1% Inj (Xylocaine-Mpf 1% In (05/26/17 10:45) Ed Discharge Order (05/26/17 11:51) Labs Laboratory Tests Test 05/26/17 10:58 Urine Color YELLOW Urine Turbidity HAZY Urine pH 6.0 Urine Specific [place] 1.026 Urine Protein TRACE mg/dL Urine Glucose (UA) NEG mg/dL Urine Ketones NEG mg/dL Urine Occult Blood NEG Urine Nitrite NEG Urine Bilirubin NEG Urine Urobilinogen LESS THAN 2.0 MG/DL Urine Leukocyte Esterase MOD Urine RBC 1 /hpf Urine WBC 7 /hpf Urine Squamous Epithelial Cells 12 /hpf Urine Mucus FEW /lpf Microscopic Urinalysis Comment CULT NOT INDICATED MDM Medical Decision Making Medical Screen Exam Complete: Yes Emergency Medical Condition: Yes Medical Record Reviewed: Yes Differential Diagnosis IUP, UTI, ectopic , ov torsion, appendicitis, TOA, cervicitis, BV, Trichomoniasis, ov cyst, hernia, mittelschmerz, pain from menstruation Narrative Course Patient prefers empiric coverage which is not unreasonable. Urinary is negative UA: low probability for UTI Diagnosis Primary Impression: Vaginal discharge Referrals: [facility] 2 days Med/Other Pt SpecificInfo: Prescription(s) given Scripts Metronidazole (Flagyl) 500 Mg Tab 500 MG PO BID for Infection for 7 Days, #14 TAB 0 Refills Prov: Gulshan Herrera MD 05/26/17 Disposition: 01 DISCHARGE HOME Condition: Stable Gulshan Herrera MD May 26, 2017 10:35
[2017-05-26] MEDS ORDERED: LIDOCAINE HCL 1% PF 30 ML VIAL INFIL ONE (10:45)
[2017-05-26 11:38] LABS: BILIRUBIN, URINE NEG (NEG); BLOOD, URINE NEG (NEG); GLUCOSE,URINE NEG (NEG); KETONE, URINE NEG (NEG); MUCUS URINE FEW /lpf (OCC); NITRITE,URINE NEG (NEG); SQUAMOUS EPITHELIAL CELL URINE 12 /hpf (0-5); URINE COLOR YELLOW (YELLW/STRAW); URINE LEUKOCYTE ESTERASE MOD (NEG)
== END 2017-05-26 11:54 | disposition home or self-care (01) ==
LOC: NEPD 09:45
DX: N89.8 Other specified noninflammatory disorders of vagina (principal)
CPT/HCPCS: 81001; 84703; 96372; 99283; J0696

== ENCOUNTER 2017-08-09 11:54 | Emergency (ER) | payer MEDICAID ==
[~2017-08-09] VITALS: Ht 154.9 cm; Wt 65.0 kg
[2017-08-09 12:00] VITALS: BP 142/63; PULSE 77; RESP 16; TEMP 97.8; O2SAT 100
--- NOTE | 2017-08-09 14:11 | PD ---
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 States that 2 weeks ago she began have being vaginal bleeding and cramping and thought it was irregular.. States that the cramping stopped after couple of days but patient continues to bleed. Patient denies fever, chills, chest pain, shortness of breath, nausea, vomiting , diarrhea, abdominal pain, leg pain. Says that just prior to this bleeding she had a vaginal odor and a heavier than normal white vaginal discharge. Says she last gave July 13, 2016 and had a regular follow-up with her senior principal software engineer. Says that she is monogamous and believes her partner is as well. Patient has not followed up with her primary care physician and she has not been on been able to obtain an appointment for evaluation. Patient denies chronic medical issues. States she takes iron and vxkc-cno-rqaoxyl counter supplements for hair and nails. She denies oral contraceptives or other contraceptive use. PFSH Past Medical History Diminished Hearing: No Reproductive: Yes (uti) Immunizations Current: No Tetanus Vaccination: > 5 Years Influenza Vaccination: No ?: Unknown : 2 Para: 1 Miscarriage: 1 Dilation and Curettage (D&C): Yes Social History Alcohol Use: No Tobacco Use: No (never) Substance Use: No Allergies-Medications (Allergen,Severity, Reaction): Coded Allergies: No Known Allergies (Verified Adverse Reaction, Unknown, 08/09/17) Reported Meds & Prescriptions Reported Meds & Active Scripts Active Flagyl (Metronidazole) 500 Mg Tab 500 Mg PO BID 7 Days Review of Systems Except as stated in HPI: all other systems reviewed are Neg Physical Exam Narrative GENERAL: Well-developed, well-nourished in no apparent distress SKIN: Focused skin assessment warm/dry. HEAD: Atraumatic. Normocephalic. EYES: Pupils equal and round. No scleral icterus. No injection or drainage. ENT: No nasal bleeding or discharge. Mucous membranes pink and moist. NECK: Trachea midline. No JVD. No lymphadenopathy CARDIOVASCULAR: Regular rate and rhythm. No murmur appreciated. RESPIRATORY: No accessory muscle use. Clear to auscultation. Breath sounds equal bilaterally. GASTROINTESTINAL: Abdomen soft, non-tender, nondistended. Hepatic and splenic margins not palpable. MUSCULOSKELETAL: No obvious deformities. No clubbing. No cyanosis. No edema. GENITOURINARY: Normal external genitalia without lesions or erythema. Vaginal vault with blood, white discharge Cervical os was closed with white discharge. No cervical motion tenderness. Uterus nontender and nonenlarged. Bilateral adnexa nontender without masses. NEUROLOGICAL: Awake and alert. No obvious cranial nerve deficits. Motor grossly within normal limits. Normal speech. PSYCHIATRIC: Appropriate mood and affect; insight and judgment normal. Data Data Last Documented VS Vital Signs Date Time Temp Pulse Resp B/P (MAP) Pulse Ox O2 Delivery O2 Flow Rate FiO2 08/09/17 13:30 78 15 08/09/17 12:00 97.8 142/63 (89) 100 Orders Orders Ed Urine Pregnancytest Poc (08/09/17 13:40) Gc And Chlamydia Pcr (08/09/17 14:03) Wet Prep Profile (08/09/17 14:03) Urinalysis - C+S If Indicated (08/09/17 14:11) Ed Discharge Order (08/09/17 15:49) Labs Laboratory Tests Test 08/09/17 14:50 Urine Color LIGHT-YELLOW Urine Turbidity CLEAR Urine pH 6.0 Urine Specific [place] 1.006 Urine Protein NEG mg/dL Urine Glucose (UA) NEG mg/dL Urine Ketones NEG mg/dL Urine Occult Blood MOD Urine Nitrite NEG Urine Bilirubin NEG Urine Urobilinogen LESS THAN 2.0 MG/DL Urine Leukocyte Esterase NEG Urine RBC LESS THAN 1 /hpf Urine WBC 1 /hpf Urine Squamous Epithelial Cells 1 /hpf Microscopic Urinalysis Comment CULT NOT INDICATED Clue Cells (Wet Prep) PRESENT Vaginal Trichomonas (Wet Prep) NONE SEEN Vaginal Yeast (Wet Prep) NONE SEEN MDM Medical Decision Making Medical Screen Exam Complete: Yes Emergency Medical Condition: Yes Differential Diagnosis abnormal vaginal bleeding, DUB, missed , bacterial vaginosis, dysmenorrhea Narrative Course 22y female presents to the emergency department for concern of vaginal bleeding that she has had for 2 weeks. States that 2 weeks ago she began have being vaginal bleeding and cramping and thought it was irregular.. States that the cramping stopped after couple of days but patient continues to bleed. Patient denies fever, chills, chest pain, shortness of breath, nausea, vomiting , diarrhea, abdominal pain, leg pain. Says that just prior to this bleeding she had a vaginal odor and a heavier than normal white vaginal discharge. Says she last gave July 13, 2016 and had a regular follow-up with her senior principal software engineer. Says that she is monogamous and she believes her partner is as well. Patient has not followed up with her primary care physician and she has not been on been able to have an appointment. Patient denies chronic medical issues. States she takes iron and ctxr-eew-vviuvid counter supplements for hair and nails. She denies oral contraceptives or other contraceptive use. Vital signs stable. Pelvic exam demonstrates bloody discharge with some white discharge from office. Cervical loss closed. Labs ordered and sent for evaluation. Clue cells present. We will treat for bacterial vaginosis. Gonorrhea and chlamydia pending, although low suspicion for these infections as patient is monogamous and she believes her partner is as well. Patient is advised to follow-up with a residential real estate sales manager for further evaluation of her vaginal bleeding. Diagnosis Primary Impression: Bacterial vaginosis Referrals: Donation Worker Additional Instructions: Follow-up the residential real estate sales manager as discussed. If you develop fever, chills, severe abdominal pain, persistent vomiting or inability to eat return to the emergency department. Your pelvic exam today did not include a Pap smear. It is important to followup with a residential real estate sales manager on a yearly basis to be tested for cervical cancer as we do not do that from the emergency department. If there is a concern that you have sexually transmitted disease, your partner should be tested. You should followup with your residential real estate sales manager or with the health department to get tested for other sexually transmitted diseases like HIV and syphilis, as we do not test for these in the emergency department Avoid alcohol consumption while taking Flagyl. Scripts Metronidazole (Flagyl) 500 Mg Tab 500 MG PO BID for Infection for 7 Days, #14 TAB 0 Refills Prov: Pita Greenfield 08/09/17 Disposition: 01 DISCHARGE HOME Condition: Stable Pita Greenfield Aug 09, 2017 14:11
[2017-08-09 15:10] LABS: BILIRUBIN, URINE NEG (NEG); BLOOD, URINE MOD (NEG); GLUCOSE,URINE NEG (NEG); KETONE, URINE NEG (NEG); NITRITE,URINE NEG (NEG); SQUAMOUS EPITHELIAL CELL URINE 1 /hpf (0-5); URINE COLOR LIGHT-YELLOW (YELLW/STRAW); URINE LEUKOCYTE ESTERASE NEG (NEG)
[2017-08-09] MEDS ORDERED: METR-1 PO (15:45)
== END 2017-08-09 16:00 | disposition home or self-care (01) ==
LOC: NEPC 11:54
DX: N76.0 Acute vaginitis (principal)
CPT/HCPCS: 81001; 84703; 87210; 87491; 87591; 99284